=== PATIENT | male | born 1975 | race Caucasian/White ===

== ENCOUNTER 2022-12-14 15:43 | Emergency (ER) | payer OTHER, MEDICAID, SELFPAY ==
[2022-12-14 15:53] VITALS: BP 141/96; PULSE 88; RESP 20; TEMP 37; O2SAT 97; BMI 25.0
--- NOTE | 2022-12-14 15:56 | DI.RAD.S_ITS ---
PROCEDURE: XR SHOULDER RT MIN 2V INDICATIONS: injury TECHNIQUE: 3 views of the shoulder were acquired. COMPARISON: None. FINDINGS: Bones: Anterior inferior dislocation of humeral head. No suspicious bony lesions. Visualized ribs appear intact. Soft tissues: No suspicious soft tissue calcifications. IMPRESSION: Anterior inferior shoulder dislocation. Dictated by: Gwen Huddleston M.D. on 12/14/2022 at 17:00 Approved by: Gwen Huddleston M.D. on 12/14/2022 at 17:02
--- NOTE | 2022-12-14 16:20 | ED_ITS ---
HPI - Extremity Injury (Upper) General Chief Complaint: Extremity Injury, Upper Stated Complaint: rt shoulder injury Time Seen by Provider: 12/14/22 16:13 Source: patient Mode of arrival: Ambulatory History of Present Illness HPI narrative: Patient is a healthy 47-year-old who presents with right shoulder injury. He thinks he dislocated it. He is never previously dislocated shoulder. But used to play baseball on has some shoulder problems. Got some numbness in his fingertips. He denies hitting his head or losing consciousness. He is no other injuries. He is actually quite a bit of a hurry he has to pick the patient here at the hospital and his mom is admitted at [facility] Related Data Allergies Allergy/AdvReac Type Severity Reaction Status Date / Time No Known Drug Allergies Allergy Verified 12/14/22 15:53 Review of Systems Review of Systems ROS Unobtainable: All systems reviewed & are unremarkable except as noted in HPI and below Patient History Social History Smoking Status: Current every day smoker Smoking Status: Current every day smoker tobacco type: vaping alcohol intake frequency: a few times a month Substance Use Type: marijuana Exam Initial Vital Signs Initial Vital Signs: Vital Signs Temperature 98.6 F 12/14/22 15:53 Pulse Rate 88 12/14/22 15:53 Respiratory Rate 20 12/14/22 15:53 Blood Pressure 141/96 H 12/14/22 15:53 Pulse Oximetry 97 12/14/22 15:53 Oxygen Delivery Method 12/14/22 15:53 GENERAL: The patient appears well HEADL atraumatic, no abrasion no continue NECK supple no vertebral tenderness no step-off CARDIOVASCULAR: peripheral pulses in tact, cap refill <2 sec RESPIRATORY: No respiratory distress, speaks in full sentences without difficulty EXTREMITIES: Normal range of motion, no clubbing or edema. Neurovascularly intact Fullness anteriorly right shoulder distal radial pulse intact NEUROLOGICAL: Cranial nerves II through XII grossly intact. Normal gait and speech. SKIN: Warm, dry, no petechiae, no rashes or lesions. Procedures Orthopedic Joint Reduction Joint #1: Side: right Joint Reduction Location: shoulder Analgesia: none Shoulder Technique Used (if applicable): Jewel (no weight, just light pressure) Technique used: direct manipulation Post-reduction neuro exam: intact and no change Post Reduction X-Ray Obtained: No Splint Applied: No Course Orders Ordered: ED Orders 12/14/22 15:56 XR shoulder RT min 2V Stat Vital Signs Vital signs: Vital Signs - 8 hr 12/14/22 15:53 Temperature 98.6 F Pulse Rate 88 Respiratory Rate 20 Blood Pressure 141/96 H Pulse Oximetry 97 Oxygen Delivery Method Room Air MDM - Extremity Injury (Upper) Imaging Data Extremity x-ray #1: Radiologist's Impression: [address] [address] XRay Report Signed Patient: Allan Ng MR#: [id number] : 1975 Acct:[id number] Age/Sex: 47 / M Date of Service: 12/14/22 Loc: ED Accession Number: [id number] ?? Procedure: XR shoulder RT min 2V Ordering Provider: Yisel Saleem D.O. PROCEDURE:? XR SHOULDER RT MIN 2V ? INDICATIONS:? injury ? TECHNIQUE:? 3 views of the shoulder were acquired.? ? COMPARISON:? None. ? FINDINGS:? ? Bones:? Anterior inferior dislocation of humeral head.? No suspicious bony lesions.? Visualized ribs appear intact.? ? Soft tissues:? No suspicious soft tissue calcifications.? ? IMPRESSION:? Anterior inferior shoulder dislocation. ? ? Dictated by: Gwen Huddleston M.D. on 12/14/2022 at 17:00 ? ? [facility] Narrative Medical decision making narrative: Patient healthy 47-year-old male who presents with isolated injury of right shoulder dislocation. It was easily reduced while patient was prone with arm hanging off the gurney. Light pressure and some scapular manipulation easily went back in. Patient could immediately have instant relief. Neurovascularly re-evaluated. He is able to move his shoulder. Did not want to stay for postreduction x-ray. I do not see any fracture pre reduction. He is offered a sling however declines. He is offered Tylenol and Motrin however he declines. Was adamant he did not want any kind of medication for the reduction he has too many things to do today including patient care. MDM * differential diagnosis includes but not limited to: Fracture dislocation sprain * Prior records reviewed: No * My lab interpretation: None * My imaging interpretation: Dislocated shoulder no fracture * Clinical Decision Rules/Scores evaluated: None * Independent discussions with: None * Social Considerations: [ ] * Shared Decision Making: Patient *Disposition: see below, along with detailed discharge instructions that have been reviewed with patient as well as indications for ED re-evaluation and additional outpatient follow up Discharge Plan Departure Patient Disposition: Home Clinical Impression: Dislocation, shoulder closed Qualifiers: Encounter type: initial encounter Laterality: right Qualified Code(s): S43.004A - Unspecified dislocation of right shoulder joint, initial encounter Instructions: DI for Shoulder Dislocation Activity Restrictions/Additional Instructions: *You have been diagnosed with right shoulder dislocation *What to do: Increase activity as tolerated please go slowly. Ice as needed. *Continue to take medications as directed Motrin 600 mg every 6 hours if needed for [id number] pain *Follow up with your primary care provider in 2-3 days or call [phone] *Return to ER if you should have increased pain numbness tingling weakness or any new, worsening or concerning symptoms Stand Alone Forms: Patient Portal/API
== END 2022-12-14 16:20 | disposition home or self-care (01) ==
PROVIDERS: Emergency Provider Emergency Medicine
DX: S43.004A Unspecified dislocation of right shoulder joint, initial encounter (principal); X58.XXXA Exposure to other specified factors, initial encounter
CPT/HCPCS: 23650; 73030; 99281; 99283